=== PATIENT | male | born 1970 | race Caucasian/White ===

== ENCOUNTER 2018-06-21 20:31 | Inpatient (IN) | payer OTHER ==
[~2018-06-21] VITALS: Ht 182.9 cm; Wt 98.4 kg
[2018-06-21 20:35] VITALS: BP 106/58; BP 148/70
[2018-06-21] MEDS ORDERED: CLARITIN10 MG PO (20:40)
[2018-06-21] MEDS ORDERED: BLOOD PRESSURE MED (20:40)
[2018-06-21 21:17] LABS: HEMATOCRIT 41.4 % (42.0-52.0); MCH 29.6 pg (26.0-34.0); MCHC 33.7 g/dL (28.0-37.0); MCV 87.9 fL (80.0-100.0); MPV 8.5 fl. (7.2-11.1); NUCLEATED RBCS 0 /100WBC; PLATELET COUNT* 269 thou/uL (150-400); RBC 4.71 mil/uL (4.50-6.00); RDW-CV 15.4 % (10.5-14.5); WBC 24.9 thou/uL (4.0-11.0)
[2018-06-21 21:31] LABS: CREATININE 1.5 mg/dL (0.6-1.3); POTASSIUM 3.4 mmol/L (3.5-5.1)
[2018-06-21 21:35] LABS: ALBUMIN 3.5 g/dL (3.4-5.0); TOTAL BILIRUBIN 0.4 mg/dL (<0.1-1.0); TOTAL PROTEIN 8.1 g/dL (6.4-8.2)
[2018-06-21 21:37] LABS: ABSOLUTE LYMPHOCYTES 1.2 thou/uL (0.8-5.3); ABSOLUTE MONOCYTES 1.5 thou/uL (0.0-1.2); ABSOLUTE NEUTROPHILS 22.2 thou/uL (1.6-8.1)
[2018-06-21 21:38] LABS: PLATELET ESTIMATE ADEQUATE
[2018-06-21 22:11] LABS: URINE BILIRUBIN NEGATIVE (Negative); URINE BLOOD TRACE (Negative); URINE CLARITY CLEAR; URINE COLOR YELLOW; URINE GLUCOSE-RANDOM NEGATIVE (Negative); URINE KETONES NEGATIVE (Negative); URINE LEUKOCYTES-REFLEX NEGATIVE (Negative); URINE NITRITE-REFLEX NEGATIVE (Negative); URINE PROTEIN 1+ (Negative); URINE SPECIFIC GRAVITY 1.015 (1.005-1.030); URINE UROBILINOGEN 0.2 E.U./dl (0.2-1.0)
[2018-06-22 03:00] VITALS: BP 131/67
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
[2018-06-22 07:05] VITALS: BP 127/67
[2018-06-22 07:09] VITALS: BP 127/73
--- NOTE | 2018-06-22 07:17 | NUR ---
RECIEVED REPORT AND ASSUMED CARE FROM SHY HWANG RN. PT RESTING IN BED QUIETLY WITH EYES CLOSED UPON ENTERING THE ROOM. TAPPED PT FOOT PER REQUEST DUE TO PTSD TO WAKE PT FOR ASSESSMENT. VITALS WERE TAKEN AND ARE STABLE AT THIS TIME. 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 PT DENIES ANY NEEDS AT THIS TIME. NURSE AT BEDSIDE COMPLETING ADMISSION CHARTING. BED LOW, LOCKED, AND CALL LIGHT WITIN REACH. WILL CONTINUE TO MONITOR.
[2018-06-22 08:45] VITALS: BP 124/73
[2018-06-22 16:01] VITALS: BP 146/83
--- NOTE | 2018-06-22 16:27 | NUR ---
PATIENT A&OX4, ROOM AIR 2-4L O2 VIA NC NEEDED. IV RIGHT AC FLUIDS INFUSSING, SLUGGISH. PATIENT DEHYDRATED, UNABLE TO CHANGE IV SITE AT THIS TIME. UP STAND BY, STEADY GAIT. CONTINENT OF B&B, C-DIF SAMBLE SENT TO LAB, RESULTS PENDING. NO C/O PAIN/N/V. PT STATES HX OF PTSD, REQUEST STAFF TAP FOOT IF SLEEPING WHEN ENTERING THE ROOM. CELLULITUS TO RIGHT LEG, REDNESS, WARMTH, ELEVATED WITH PILLOW. NO OTHER CONCERNS AT THIS TIME. APPROPRIATE AND COOPORATIVE WITH CARE.
[2018-06-22 23:38] VITALS: BP 128/81
[2018-06-23 04:35] LABS: HEMATOCRIT 38.8 % (42.0-52.0); HEMOGLOBIN 12.9 gm/dL (14.0-18.0); MCH 29.5 pg (26.0-34.0); MCHC 33.2 g/dL (28.0-37.0); MCV 88.9 fL (80.0-100.0); MPV 8.4 fl. (7.2-11.1); NUCLEATED RBCS 0 /100WBC; PLATELET COUNT* 207 thou/uL (150-400); RBC 4.37 mil/uL (4.50-6.00); RDW-CV 15.8 % (10.5-14.5); WBC 10.4 thou/uL (4.0-11.0)
[2018-06-23 04:48] LABS: CALCIUM 8.8 mg/dL (8.5-10.1); POTASSIUM 4.3 mmol/L (3.5-5.1)
[2018-06-23 05:44] LABS: ABSOLUTE LYMPHOCYTES 0.5 thou/uL (0.8-5.3); ABSOLUTE MONOCYTES 0.1 thou/uL (0.0-1.2); ABSOLUTE NEUTROPHILS 9.8 thou/uL (1.6-8.1); ANISOCYTOSIS 1+; PLATELET ESTIMATE ADEQUATE
[2018-06-23 05:45] LABS: POIKILOCYTOSIS 1+
--- NOTE | 2018-06-23 05:55 | NUR ---
PATIENT SLEPT MOST OF THE NIGHT. IV FLUIDS AND ANTIBIOTICS WERE GIVEN ORDERED. PATIENT HAD NO COMPLAINTS OF PAIN. CDIFF STILL PENDING. WILL CONTINUE TO MONITOR.
[2018-06-23 07:35] VITALS: BP 127/81
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
--- NOTE | 2018-06-23 13:11 | NUR ---
CM SPOKE TO THE PATIENT TO DISCUSS HOME SITUATION, DISCHARGE PLANNING, AND TO INFORM OF THE ROLE OF CM. PATIENT ALERT, ORIENTED, AND INDEPENDENT WITH ADL'S. PATIENT WORKS AN [id number], AND RESIDES IN [place]. PATIENT DOES NOT ANTICIPATE ANY NEEDS AT D/C. CM WILL REMAIN AVAILABLE TO ASSIST AND FOLLOW NEEDED.
--- NOTE | 2018-06-23 13:32 | EKG ---
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
[2018-06-23 16:40] VITALS: BP 126/75
--- NOTE | 2018-06-23 17:07 | NUR ---
PATIENT A&OXR, ROOM AIR, IV RIGHT AC FLUIDS INFUSSING. UP AD FRANTZ, STEADY GAIT. NO C/O PAIN/N/V. HX PTSD, SERVED IN [employer]. NO OTHER CONCERNS AT THIS TIME. APPROPRIATE AND COOPORATIVE WITH CARE
[2018-06-23 22:00] VITALS: BP 136/80
[2018-06-24 05:06] LABS: ABSOLUTE LYMPHOCYTES 1.1 thou/uL (0.8-5.3); ABSOLUTE MONOCYTES 0.4 thou/uL (0.0-1.2); ABSOLUTE NEUTROPHILS 12.6 thou/uL (1.6-8.1); BASOPHILS 0.2 %; HEMATOCRIT 36.8 % (42.0-52.0); HEMOGLOBIN 12.2 gm/dL (14.0-18.0); LYMPHOCYTES 7.8 %; MCH 29.5 pg (26.0-34.0); MCHC 33.1 g/dL (28.0-37.0); MCV 88.9 fL (80.0-100.0); MONOCYTES 3.1 %; MPV 8.9 fl. (7.2-11.1); NUCLEATED RBCS 0 /100WBC; PLATELET COUNT* 240 thou/uL (150-400); POLYS 88.9 %; RBC 4.14 mil/uL (4.50-6.00); RDW-CV 15.7 % (10.5-14.5); WBC 14.2 thou/uL (4.0-11.0)
[2018-06-24 05:26] LABS: ALBUMIN 2.5 g/dL (3.4-5.0); CALCIUM 8.5 mg/dL (8.5-10.1); MAGNESIUM 2.1 mg/dL (1.8-2.4); POTASSIUM 3.5 mmol/L (3.5-5.1); TOTAL BILIRUBIN 0.2 mg/dL (<0.1-1.0); TOTAL PROTEIN 6.6 g/dL (6.4-8.2)
--- NOTE | 2018-06-24 05:44 | NUR ---
PATIENT AWAKE MOST OF THE NIGHT, SAID HE SLEPT ALMOST ONE HOUR. PT WITH FLUIDS/ANTIBIOTICS INFUSING PER DR ORDER. PT UP AD FRANTZ TO BATHROOM. PT WITH CELLULITIS TO RT LOWER EXTREMITY. LEG IS RED, WARM TO TOUCH-PT SAYS LEG IS LESS SWOLLEN THAN WHEN HE WAS FIRST ADMITTED. PT DENIES PAIN. PT DENIES NEEDS AT THIS TIME. FREQUENTLY USED ITEMS AND CALL LIGHT WITHIN REACH. SIDERAILS UPX2. PT IS NO LONGER IN ISOLATION; NEGATIVE FOR CDIFF AND MRSA. WILL CONTINUE TO MONITOR.
[2018-06-24 08:00] VITALS: BP 141/90
--- NOTE | 2018-06-24 14:22 | NUR ---
CONTINUE TO FOLLOW. DISCUSSED WITH DR DU, TO SWITCH TO PO ANTIBX. PER JUAN ALBERTO QUEZADA PT NEEDS CAB VOUCHER AT [place] PROVIDED.
[2018-06-24 16:22] VITALS: BP 147/90
[2018-06-24] MEDS ORDERED: TYLENOL325 MG PO (17:48)
[2018-06-24] MEDS ORDERED: MINOCIN100 MG PO (18:04)
[2018-06-24] MEDS ORDERED: NICOTINE TRANSD21 M1 (18:07)
[2018-06-24] MEDS ORDERED: COLACE100 MG PO (18:08)
[2018-06-24 18:09] VITALS: BP 147/90
--- NOTE | 2018-06-24 20:47 | NUR ---
ASSUMED CARE THIS AM, SEE ASSESSMENT FOR DETAILS, DISCHARGE ORDERS RECEIVED, IV ACCESS REMOVED WITHOUT INCIDENT. DISCHARGE INSTRUCTIONS, FOLLOW UP APPOINTMENTS, PRESCRIPTIONS DISCUSSED WITH AND GIVEN TO PATIENT, DENIES QUESTIONS. PERSONAL EFFECTS GATHERED, ACCOUNTED FOR, IN COMPANY OF PATIENT, TRANSPORTED TO MAIN ENTRANCE IN STABLE CONDITION, CAB VOUCHER PROVIDED FOR TRANSPORT BACK TO [facility], WHERE [facility] WAS LOCATED.
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
--- NOTE | 2018-06-27 17:21 | CON ---
[address] [address] CONSULTATION Name: PIEDAD HOLT Room: [address] IN M.R.#: [id number] Admission: 06/21/18 Attend Phys: Gregory Yen MD Discharge: 06/24/18 Date of : 70 Report #: [id number] THIS REPORT FOR: //name// CC: GREGORY Yen [facility] physician/PCP [facility] DATE OF SERVICE: 06/22/2018 ADDENDUM REFERRING PHYSICIAN: Gregory Yen M.D. I have seen and examined the patient and agree with plans that have been outlined by our nurse practitioner, Malorie Oleary. In listening to the patient's history, it sounds as if he had food poisoning from the pizza and probably ingested some form of a toxin since his symptoms occurred 45 minutes after eating. He had nausea, vomiting, abdominal pain and diarrhea and he was still having some tenderness related to the same. He had no predating problems related to his upper or lower GI tract, other than reflux issues. I have reviewed the patient's CT scan and do see what was found to suggest that maybe he has some enteritis or colitis, but at the present time, he is too tender to think about having to do any endoscopic studies. There is nothing to suggest he has chronicity to the same, but he certainly needs to have evaluations of his upper and lower GI tract closer to home. I do not think it will impact his care at this time. I would proceed with symptomatic care at this time. Continue with the antibiotics, advance his diet and avoid a lot of narcotics to decrease the risk of an ileus. He can try some dicyclomine or Bentyl to help with his cramping and follow up at the [facility] in [place] where he lives once he gets discharged. He should undergo probably endoscopic evaluation of his upper or lower GI tract probably in about 4-6 weeks as long as he is doing well. I have discussed the plans with the patient as well and he is agreeable to the same. <ELECTRONICALLY SIGNED> By: Duarte Paige DO 06/27/18 1721 1818 [id number] Paige DO /nt
== END 2018-06-24 19:05 | disposition home or self-care (01) | DRG 871 ==
LOC: M.ERS 20:31 → M.3W 23:35 → M.TBA-ER 23:35 → M.3W 06-22 08:50
PROVIDERS: Nurse Practitioner Family; ADMIT Internal Medicine
DX: A41.9 Sepsis, unspecified organism (principal); J15.6 Pneumonia due to other Gram-negative bacteria; L03.115 Cellulitis of right lower limb; A04.9 Bacterial intestinal infection, unspecified; N17.9 Acute kidney failure, unspecified; F43.10 Post-traumatic stress disorder, unspecified; I10 Essential (primary) hypertension; K21.9 Gastro-esophageal reflux disease without esophagitis; F17.210 Nicotine dependence, cigarettes, uncomplicated; E86.0 Dehydration; Z79.899 Other long term (current) drug therapy; Z71.6 Tobacco abuse counseling